=== PATIENT | female | born 1990 | race Caucasian/White ===

== ENCOUNTER → 2016-07-27 | Day surgery (SDC) | payer OTHER ==
[~2016-07-27] MED LIST: BUPIVACAINE/EPINEPHRINE 0.25% PF 30 ML VIAL ONE; DOXY100T PO; KETOROLAC TROMETHAMINE 30 MG/ML (IVP) VIAL IV PUSH ONE; LACTATED RINGER'S 1000 ML INJ 1,000 ML ONE; LIDOCAINE HCL 1% 50 ML VIAL ONE; MEPERIDINE HCL 25 MG/ML VIAL ONE; MIDAZOLAM HCL 2 MG/2 ML VIAL ONE; ONDANSETRON HCL 4 MG/2 ML VIAL IV PUSH ONE; PROPOFOL 200 MG/20 ML AMP IV ONE; SERO50TA4 PO; ceFAZolin INJ 1,000 MG VIAL ONE; oxyCODONE/ACETAMINOPHEN 5 MG/325 MG TAB ONE
--- NOTE | 2016-08-02 13:15 | MP ---
cc: JANAE HUNTER MD DATE OF SURGERY: 07/27/2016 PREOPERATIVE DIAGNOSIS High-grade cervical dysplasia CIN2. POSTOPERATIVE DIAGNOSIS High-grade cervical dysplasia CIN2. SURGEON Janae Hunter PROCEDURE PERFORMED Exam under anesthesia, LEEP and ECC. INDICATIONS The patient is a 26-year-old, G1, P1, with a high-grade Pap smear. She had a colposcopy with a CIN2 biopsy. Discussed this was a high-grade lesion and recommended to be excised. Discussed with patient and father who are in agreement with the plan. The risks, benefits and alternatives were discussed. Consent signed and reviewed. ANESTHESIA LMA. IV FLUIDS 700 mL. URINE OUTPUT Not recorded. PREOPERATIVE ANTIBIOTICS Ancef one gram IV given pre procedure. COMPLICATIONS None. SPECIMEN Cervical LEEP biopsy and endocervical curettings. ESTIMATED BLOOD LOSS Minimal. COUNTS Counts correct. PROCEDURE IN DETAIL After reviewing the informed consent the patient was taken to the operating room where LMA was performed without complication. She was placed in the dorsal lithotomy position with legs in the candy-cane stirrups. The perineum was prepped and draped in normal sterile fashion. A speculum was placed in the vagina. A single-tooth tenaculum was placed on the anterior lip of the cervix. A paracervical block was performed with 0.25% Marcaine with epinephrine. A 15 x 10 mm electrode was used to perform excision. Two passes were performed. ECC was then performed. The roller ball was used to ensure hemostasis and Monsel's was also placed. All instruments were removed. The patient was placed in spine position. Anesthesia was reversed without complication. Janae Hunter MD PE/ANA CRISTINA /12:29 PM /1:05 PM
== END | disposition home or self-care (01) ==
LOC: ESDC 10:18
PROVIDERS: ATTEND Obstetrics & Gynecology
DX: N87.9 Dysplasia of cervix uteri, unspecified (principal)
CPT/HCPCS: 00940; 57522; 88305; 88307; J0690; J1885; J2175; J2250; J2405; J3010; J7120

== ENCOUNTER 2017-10-15 14:59 | Emergency (ER) | payer OTHER ==
[~2017-10-15 14:59] MED LIST changes: -BUPIVACAINE/EPINEPHRINE 0.25% PF 30 ML VIAL ONE; -KETOROLAC TROMETHAMINE 30 MG/ML (IVP) VIAL IV PUSH ONE; -LACTATED RINGER'S 1000 ML INJ 1,000 ML ONE; -LIDOCAINE HCL 1% 50 ML VIAL ONE; -MEPERIDINE HCL 25 MG/ML VIAL ONE; -MIDAZOLAM HCL 2 MG/2 ML VIAL ONE; -ONDANSETRON HCL 4 MG/2 ML VIAL IV PUSH ONE; -PROPOFOL 200 MG/20 ML AMP IV ONE; -ceFAZolin INJ 1,000 MG VIAL ONE; -oxyCODONE/ACETAMINOPHEN 5 MG/325 MG TAB ONE
[2017-10-15 15:05] VITALS: BP 156/97; PULSE 90; RESP 16; TEMP 97.8; O2SAT 98
[2017-10-15 15:29] LABS: BILIRUBIN, URINE NEG (NEG); BLOOD, URINE NEG (NEG); GLUCOSE,URINE NEG (NEG); KETONE, URINE NEG (NEG); NITRITE,URINE NEG (NEG); URINE COLOR YELLOW (YELLW/STRAW); URINE LEUKOCYTE ESTERASE NEG (NEG)
[2017-10-15 15:57] LABS: MUCUS URINE MOD /lpf (OCC); WBC, URINE 0-2 /hpf (0-5)
[2017-10-15 15:58] LABS: BACTERIA, URINE FEW /hpf; SQUAMOUS EPITHELIAL CELL URINE >8 /hpf (0-5)
[2017-10-15] MEDS ORDERED: DICL1CAP4 PO (16:54)
[2017-10-15] MEDS ORDERED: DICL50TA PO (16:54)
[2017-10-15] MEDS ORDERED: GABA600T PO (16:54)
[2017-10-15] MEDS ORDERED: PANT40TA3 PO (16:54)
[2017-10-15] MEDS ORDERED: SODIUM CHLORIDE 0.9% FLUSH 10 ML FLUSH IV FLUSH PRN (17:00)
[2017-10-15 17:17] LABS: BASOPHIL % 0.8 % (0.0-2.0); EOSINOPHIL # 0.1 TH/MM3 (0-0.4); EOSINOPHIL % 2.2 % (0.0-4.0); HEMATOCRIT 36.7 % (35.0-46.0); HEMOGLOBIN 12.4 GM/DL (11.6-15.3); LYMPH % 33.6 % (9.0-44.0); LYMPHOCYTE # 1.8 TH/MM3 (1.0-4.8); MEAN CELL VOLUME 91.2 FL (80.0-100.0); MEAN CORPUSCULAR HEMOGLOBIN 30.9 PG (27.0-34.0); MEAN CORPUSCULAR HGB CONC 33.9 % (32.0-36.0); MEAN PLATELET VOLUME 7.1 FL (7.0-11.0); MONO % 7.3 % (0.0-8.0); MONOCYTE # 0.4 TH/MM3 (0-0.9); NEUT % 56.1 % (16.0-70.0); PLATELET COUNT 240 TH/MM3 (150-450); RED BLOOD COUNT 4.02 MIL/MM3 (4.00-5.30); RED CELL DISTRIBUTION WIDTH 12.3 % (11.6-17.2); WHITE BLOOD COUNT 5.3 TH/MM3 (4.0-11.0)
[2017-10-15 17:24] LABS: CHLORIDE 110 MEQ/L (98-107); SODIUM (NA) 142 MEQ/L (136-145)
[2017-10-15 17:27] LABS: CALCIUM 8.3 MG/DL (8.5-10.1)
[2017-10-15 17:28] LABS: ALBUMIN 3.3 GM/DL (3.4-5.0); BICARBONATE 24.2 MEQ/L (21.0-32.0); BLOOD UREA NITROGEN 12 MG/DL (7-18); GLUCOSE,RANDOM 89 MG/DL (74-106)
[2017-10-15 17:31] LABS: ALT (GPT) 15 U/L (10-53); AST (GOT) 13 U/L (15-37); CREATININE 0.61 MG/DL (0.50-1.00); GLOMERULAR FILTRATION RATE 116 ML/MIN (>89)
[2017-10-15 17:32] LABS: TOTAL BILIRUBIN ADULT 0.1 MG/DL (0.2-1.0)
[2017-10-15 17:33] LABS: TOTAL PROTEIN 6.5 GM/DL (6.4-8.2)
[2017-10-15 17:34] LABS: ALKALINE PHOSPHATASE 72 U/L (45-117)
[2017-10-15] MEDS ORDERED: IOHEXOL 350 MG/ML 10 ML VIAL (for RAD DIAG) IVCONTRAST ONE (17:40)
--- NOTE | 2017-10-15 18:04 | RADRPT ---
EXAM DATE/TIME: 10/15/2017 17:35 [facility] COMPARISON: No previous studies available for comparison. INDICATIONS : Right upper quadrant pain. IV CONTRAST: 95 cc Omnipaque 350 (iohexol) IV ORAL CONTRAST: No oral contrast ingested. RADIATION DOSE: 19.83 CTDIvol (mGy) MEDICAL HISTORY : None SURGICAL HISTORY : section. ENCOUNTER: Initial ACUITY: 2 days PAIN SCALE: 6/10 LOCATION: Right upper quadrant TECHNIQUE: Volumetric scanning of the abdomen and pelvis was performed. Using automated exposure control and ad justment of the mA and/or kV according to patient size, radiation dose was kept as low as reasonably achievable to obtain optimal diagnostic quality images. DICOM format image data is available electro nically for review and comparison. FINDINGS: LOWER LUNGS: Minimal increased density at the right lower lobe. LIVER: Homogeneous density without lesion. There is no dilation of the biliary tree. No calcified gallston es. The gallbladder is not distended. SPLEEN: Normal size without lesion. PANCREAS: Within normal limits. KIDNEYS: Normal in size and shape. There is no stone or hydronephrosis. There are 5 mm hypodensity seen in th e posterior mid kidneys bilaterally likely related to small cysts. ADRENAL GLANDS: Within normal limits. VASCULAR: There is no aortic aneurysm. BOWEL/MESENTERY: The stomach, small bowel, and colon demonstrate no acute abnormality. There is no free intraperitone al air or fluid. The appendix appears normal. ABDOMINAL WALL: Within normal limits. RETROPERITONEUM: There is no lymphadenopathy. BLADDER: No wall thickening or mass. REPRODUCTIVE: Within normal limits. INGUINAL: There is no lymphadenopathy or hernia. MUSCULOSKELETAL: Within normal limits for patient age. CONCLUSION: 1. No acute intra-abdominal abnormality is seen. 2. Mild consolidation or atelectasis at the right lower lung. Wyatt Garcia MD on October 15, 2017 at 17:54 Board Certified Radiologist. This report was verified electronically.
[2017-10-15] MEDS ORDERED: TRAM50TA PO (19:03)
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
[2017-10-15 19:35] VITALS: BP 142/86
== END 2017-10-15 19:36 | disposition home or self-care (01) ==
LOC: PHED 14:59
DX: R10.11 Right upper quadrant pain (principal); J98.11 Atelectasis; R11.0 Nausea; F32.9 Major depressive disorder, single episode, unspecified; F17.200 Nicotine dependence, unspecified, uncomplicated; Z79.899 Other long term (current) drug therapy; Z88.2 Allergy status to sulfonamides
CPT/HCPCS: 74177; 80053; 81001; 83690; 84703; 85025; 85610; 85730; 99284; Q9967